=== PATIENT | female | born 1995 | race Caucasian/White ===

== ENCOUNTER 2017-10-18 12:09 | Emergency (ER) | payer BC ==
--- NOTE | 2017-10-18 12:18 | PDOC ---
History of Present Illness - General Chief Complaint: Syncope/Near Syncope Stated Complaint: FAINTING VS SEIZURE Time Seen by Provider: 10/18/17 12:17 History Source: Patient Exam Limitations: No Limitations - History of Present Illness Initial Comments: 10/18/17 14:02 Ms Weaver is a 22 yo F who presents to the ER s/p syncopal vs. seizure Pt states she was in her usual state of health She was in class today and by EMS report, she had a seizure pt has no memory of event She last remembered filling out a form in class She then awoke on the ground No bowel or bladder incontinence (+) tongue biting No fevers or chills No preceding chest pain, palpitations No shortness of breath No prior episodes like this No recent guide travel states the only change in her life recently has been the addition of a herbal tea detox program (reportedly increases metabolism) She did not eat this morning, had only this tea 10/18/17 14:08 PMH: denies PSH: Shoulder surgery Meds: Xanax prn, Omeprazole ALL: NKDA Social: denies tobacco use, uses weed, no other drug use Alcohol socially GENERAL/CONSTITUTIONAL: No: fever, chills, weakness, loss of appetite. HEAD, EYES, EARS, NOSE AND THROAT: No: change in vision, ear pain, discharge, sore throat, throat swelling. CARDIOVASCULAR: No: chest pain, lightheadedness, palpitations, syncope RESPIRATORY: No: cough, shortness of breath, wheezing, hemoptysis, stridor. GASTROINTESTINAL: No: nausea, vomiting, diarrhea, abdominal GENITOURINARY: No: dysuria, hematuria, frequency, urgency, flank pain. MUSCULOSKELETAL: No: back pain, neck pain, joint pain, muscle swelling or pain SKIN AND BREASTS: No: lesions, pallor, rash or easy bruising. NEUROLOGIC: Yes: syncope vs. Seizure No: headache, vertigo, paresthesias, weakness ENDOCRINE: No: unexplained weight gain or loss HEMATOLOGIC/LYMPHATIC: No: anemia, easy bleeding, swelling nodes. GENERAL: The patient is in no acute distress. HEAD: Normal with no signs of trauma. EYES: PERRLA, EOMI, sclera anicteric, conjunctiva clear. ENT: Ears normal, nares patent, oropharynx clear without exudates. Moist mucous membranes. (+) Right tongue bite, bruising NECK: Normal range of motion, supple without lymphadenopathy, JVD, or masses. LUNGS: Breath sounds equal, clear to auscultation bilaterally. No wheezes, and no crackles. HEART:Regular rate and rhythm, normal S1 and S2 without murmur, rub or gallop. ABDOMEN: Soft, nontender, normoactive bowel sounds. No guarding, no rebound. No masses palpable. EXTREMITIES: Normal range of motion, no unilateral edema NEUROLOGICAL: Cranial nerves II through XII grossly intact. Normal speech. No focal neurological deficits. MUSCULOSKELETAL: Back non-tender to palpation, no CVA tenderness SKIN: Warm, Dry, normal turgor, no rashes or lesions noted. 10/18/17 14:12 10/20/17 09:56 Past History - Past Medical History Allergies/Adverse Reactions: Allergies Allergy/AdvReac Type Severity Reaction Status Date / Time No Known Allergies Allergy Verified 10/18/17 12:10 Home Medications: Ambulatory Orders Alprazolam [Xanax] 1 mg PO PRN PRN 10/18/17 Omeprazole 10 mg PO DAILY 10/18/17 ED Treatment Course - LABORATORY CBC & Chemistry Diagram: 10/18/17 13:46 10/18/17 13:46 Medical Decision Making - Medical Decision Making 10/18/17 14:11 22 yo F s/p syncope vs seizure No prodrome and tongue biting suggest seizure No prior epsiodes like this EKG:SR, rate of 85 bpm, [place] nml, intervals nml, no st elevations or depressions , t waves upright Will do: Basic labs CT head monitor Re assess Laboratory Tests 10/18/17 10/18/17 10/18/17 12:39 13:46 13:46 WBC 8.2 Hgb 13.9 Hct 39.0 Plt Count 185 Sodium 135 L Potassium 3.9 Chloride 105 Carbon Dioxide 25 BUN 6 L Creatinine < 0.8 Urine HCG, Qual Negative 10/18/17 14:13 CT head: negative for acute intracranial pathology 10/18/17 14:47 Seizure? syncope? Will discharge to home Pt has appointment with neuro tomorrow at 11 am If symptoms worsen or change, return to the ER Clinical Impression: seizure, initial presentation *DC/Admit/Observation/Transfer Diagnosis at time of Disposition: Seizure - Discharge Dispostion Disposition: HOME Condition at time of disposition: Stable Admit: No - Referrals - Patient Instructions Printed Discharge Instructions: DI for Syncope in Adults (Fainting), DI for Seizure (Not Epilepsy/Seizure Disorder) Additional Instructions: You must keep your follow up tomorrow Return to the ER immediately for ANY other concerns or complaints - Post Discharge Activity Forms/Work/School Notes: Back to Work
[2017-10-18 12:41] VITALS: BP 138/75; PULSE 98; TEMP 98.5; BMI 34.4
[2017-10-18] MEDS ORDERED: IBUPROFEN 600 MG TABLET (FP) PO ONE ×2 (14:08→14:38)
[2017-10-18 14:11] LABS: ALBUMIN 4.1 g/dl (3.5-5.0); ALK PHOS 42 U/L (32-92); ANION GAP 5 (8-16); BLOOD UREA NITROGEN 6 mg/dl (7-18); CALCIUM 8.9 mg/dl (8.4-10.2); CHLORIDE 105 mmol/L (98-107); CO2 25 mmol/L (22-28); GLUCOSE,RANDOM 126 mg/dl (74-106); POTASSIUM 3.9 mmol/L (3.5-5.1); SGOT/AST 25 U/L (10-42); SGPT/ALT 22 U/L (10-40); SODIUM 135 mmol/L (136-145); TOT PROT 6.5 g/dl (6.4-8.3)
[2017-10-18] MEDS ORDERED: ONDANSETRON 4 MG TABLET PO ONE (14:14)
[2017-10-18] MEDS ORDERED: ONDANSETRON *ODT* 4 MG TABLET ONE (14:15)
[2017-10-18 14:31] LABS: BILIRUBIN,TOTAL < 0.5 mg/dl (0.2-1.0); CREATININE < 0.8 mg/dl (0.6-1.3)
[2017-10-18 14:58] LABS: BASO % 0.1 % (0-2.0); EOS % 0.5 % (0-4.5); HEMOGLOBIN 13.9 GM/dl (10.7-15.3); LYMPH % 9.2 % (8-40); MCH 30.8 pg (25.7-33.7); MCHC 35.6 g/dl (32.0-36.0); MEAN CELL VOLUME 86.5 fl (80-96); MEAN PLT VOLUME 8.3 fl (7.5-11.1); MONO % 3.3 % (3.8-10.2); NEUT % 86.9 % (42.8-82.8); PLATELET COUNT 185 K/MM3 (134-434); RBC 4.51 M/mm3 (3.60-5.2); RDW 12.3 % (11.6-15.6); WHITE BLOOD COUNT 8.2 K/mm3 (4.0-10.8)
--- NOTE | 2017-10-19 12:53 | EKG ---
Test Reason : Blood Pressure : / mmHG Vent. Rate : 085 BPM Atrial Rate : 085 BPM P-R Int : 148 ms QRS Dur : 088 ms QT Int : 356 ms P-R-T Axes : 026 027 025 degrees QTc Int : 423 ms NORMAL SINUS RHYTHM WITH SINUS ARRHYTHMIA NORMAL ECG NO PREVIOUS ECGS AVAILABLE Confirmed by MD CELINA, YARELIS ([id number]) on 10/19/2017 12:53:07 PM Referred By: JOJO Confirmed By:YARELIS PATRICK MD
== END 2017-10-18 15:01 | disposition home or self-care (01) ==
LOC: FER 12:09
DX: R56.9 Unspecified convulsions (principal)
CPT/HCPCS: 36415; 70450-TC; 80053; 84703; 85025; 93005; 99284-25